=== PATIENT | female | born 1990 | race Caucasian/White ===

== ENCOUNTER 2024-04-28 15:51 | Emergency (ER) | payer SELFPAY ==
[2024-04-28 15:57] VITALS: BP 123/86
[2024-04-28 17:09] VITALS: BP 128/82
[2024-04-28 17:58] VITALS: BP 129/78
[2024-04-28 18:00] VITALS: BP 131/79
[2024-04-28] MEDS: TYLENOL 1000 MG PO (18:12)
[2024-04-28 19:00] VITALS: BP 111/85
--- NOTE | 2024-04-28 19:03 | ED.GENMED ---
History of Present Illness
General
Chief Complaint: Fall
Source: patient
Exam Limitations: none
Time Seen by Provider: 04/28/24 16:14
Nursing documentation reviewed up to this point in time: agreed with
History of Present Illness
History of Present Illness:
Patient presents to ED for evaluation after falling off the ladder, approximately 6 feet high, onto concrete floor, while she was at work this morning. Patient states that ladder started falling backwards and she landed on her left side, with
ladder on top of her. Patient reports hitting her head as well as her left shoulder first. Patient presenting with continual headache, light sensitivity, left shoulder and elbow pain, as well as left hip and left foot pain. Denies loss of
consciousness. Denies loss of sensation or weakness. Denies dizziness. Denies blurred vision. Denies difficulty with speech. Denies chest pain or shortness of breath. Denies abdominal pain. Denies nausea sensation.
Review of Systems
Review of Systems
Allergies reviewed?: Yes
All Other Systems: ROS reviewed and negative except as documented in HPI and ROS
Constitutional: Reports no symptoms
Respiratory: Reports no symptoms; Denies trouble breathing
Cardiac: Reports no symptoms; Denies chest pain
ABD/GI: Reports no symptoms; Denies nausea or vomiting
Musculoskeletal: Reports other (Shoulder, elbow, and foot pain)
Skin: Reports no symptoms
Neurological: Reports headache; Denies dizzy or weakness
Phy Exam
Physical Exam
Physical Exam:
Physical Exam
General: mild painful distress, not acutely ill. afebrile
Head: nc/at. eomi
Neck: supple. normal range of motion.
Heart: s1/s2 regular rate and rhythm, no murmur. equal radial pulses.
Lungs: no acute respiratory distress. clear bilaterally. chest wall nontender.
Abdomen: normal bowel sounds. not tender.
Neuro: alert and oriented. no focal neurological deficits
Skin: ecchymosis noted over left upper chest /shoulder
Psychiatric: well kept. interactive and cooperative
Extremities: tenderness to palpation over left olecranon, without swelling/ecchymosis
Course
Orders/Labs/Results
Orders:
Orders
04/28/24 17:10
CT Cervical Spine W/o Iv Contr Urgent
Comment:
Reason For Exam: trauma
Acetaminophen [Tylenol] 1,000 mg PO NOW STA
CR Foot - Left Min 3 Views Urgent
Comment:
Reason For Exam: trauma
CR Hip - LT w/wo Pel 2-3 Vw* Urgent
Comment:
Reason For Exam: trauma
Include a pelvis x-ray?: Yes
CR Shoulder, Trauma - Left Urgent
Comment:
Reason For Exam: trauma
04/28/24 17:11
CT Head W/o Iv Contrast Urgent
Comment:
Reason For Exam: trauma
04/28/24 17:12
CR Chest - 2 Views Urgent
Comment:
Reason For Exam: trauma
04/28/24 19:04
CR Elbow - Left Min 3 Views Urgent
Comment:
Reason For Exam: trauma
Vital Signs
Initial and Last Documented VS:
Initial Vital Signs
Pulse Resp BP Pulse Ox
85 18 123/86 100
04/28/24 15:57 04/28/24 15:57 04/28/24 15:57 04/28/24 15:57
Last Documented Vital Signs
Pulse Resp BP Pulse Ox
82 16 128/77 100
04/28/24 20:18 04/28/24 20:18 04/28/24 20:11 04/28/24 20:18
MDM/Problems Addressed
MDM/Problems Addressed:
Patient without any acute findings on multiple imaging studies, including CT scan and multiple x-rays. Otherwise, patient remains afebrile, hemodynamically stable, neurologic intact, and nontoxic-appearing.
History and exam concerning for significant contusion along with symptoms concerning for development of postconcussive syndrome. As unfortunate incident occurred at work, advised speaking with her employer regarding work comp physician follow-up
upon discharge. Patient expresses understanding, at time of discharge, to the care of her mother.
*Critical Care Note
Total Time (30-74mins, 75-104mins- exclusive of procedures): Not Applicable
ED Attending Note
-
Portions of this chart may have been created with voice recognition software.� Occasional wrong word or��sound alike� substitutions may have occurred due to the inherent limitations of voice recognition software.
Discharge Plan
Departure
Patient Disposition: Home (Routine Discharge)
Date of Disposition: 04/28/24
Time of Disposition: 20:13
Patient with high blood pressure during this ER visit?: Yes
Condition: Good
Discharge Problem:
Contusion, Concussion
Instructions: Concussion, Adult (DC), Contusion (DC)
Referrals:
Aleksandr Bejarano MD [Family Provider] -
Stand Alone Forms: Return to Work
Activity Restrictions/Additional Instructions:
As discussed, please follow-up with your work comp physician or primary care physician for reevaluation.
Interventions
Interventions:
*Risk Screen - Suicide Last Done: 04/28/24 15:57
*General Assessment Last Done: 04/28/24 15:57
*Neglect/Abuse Screening Last Done: 04/28/24 15:57
*ED COVID-19 Vaccine History Last Done: 04/28/24 20:26
*Nursing Disposition Last Done: 04/28/24 20:26
ED-Musculoskeletal Assessment Last Done: 04/28/24 16:30
ED- Neurological Assessment Last Done: 04/28/24 16:53
ED-Skin Assessment Last Done: 04/28/24 16:53
Discharge Date and Time
Discharge Date/Time: 04/28/24 20:26
Print Language: [id number]
[2024-04-28 20:11] VITALS: BP 128/77
== END 2024-04-28 20:26 | disposition home or self-care (01) ==
LOC: EMR 15:51
PROVIDERS: EMERGENCY PHYSICIAN Emergency Medicine; FAMILY PHYSICIAN Internal Medicine
DX: S06.0X0A Concussion without loss of consciousness, initial encounter (principal); S20.212A Contusion of left front wall of thorax, initial encounter; S40.012A Contusion of left shoulder, initial encounter; W11.XXXA Fall on and from ladder, initial encounter; Y99.0 Civilian activity done for income or pay
CPT/HCPCS: 99284; 70450; 71046; 72125; 73030; 73080; 73502; 73630